=== PATIENT | female | born 1960 | race Caucasian/White ===

== ENCOUNTER 2021-08-07 10:38 | Emergency (ER) | payer SELFPAY ==
[2021-08-07] MEDS ORDERED: Ketorolac Tromethamine 30 MG/ML VIAL ONE (11:47)
== END 2021-08-07 12:35 | disposition home or self-care (01) ==
LOC: CSHERS 10:38
DX: K57.92 Diverticulitis of intestine, part unspecified, without perforation or abscess without bleeding (principal)
CPT/HCPCS: 96372; 99283; J1885